=== PATIENT | female | born 1970 | race Two or more races ===

== ENCOUNTER 2024-12-16 13:32 | Inpatient (IN) | payer BC, OTHER ==
[~2024-12-16] VITALS: Ht 162.6 cm; Wt 88.1 kg
[2024-12-16 13:40] VITALS: PULSE 113; RESP 22; O2SAT 97
--- NOTE | 2024-12-16 13:47 | ED.PDOC ---
SOB-HPI HPI Comments This is the 54 year old female JAMIE presenting to the ED with chief complaint of aspiration. EMS reports that the patient was being seen in a surgical center for a L4/5 spinal injection, sedated with Propofol and Versed prior to the procedure. EMS relays that the patient had been noted to have aspirated during her sedation, dropping her O2 saturation to 88% on RA. EMS states that the patient was kept for 2 hours for observation, however, her saturation did not improve so 911 was called. EMS notes patient is now 92% on a non-rebreather at this time. Patient reports that she is currently experiencing SOB and a non- productive cough. Patient denies any N/V, chest pain, fever, or chills. Time Seen by MD: 13:34 Reviewed notes: Nurses Notes, Clinical Care Manager Notes, Medications, Allergies Information Source: Patient, Emergency Med Personnel Mode of Arrival: EMS Severity: Severe Timing: Hours Duration: Since onset Context: At Rest PE Risk Factors: None History of: None Prehospital treatment: None Modifying Factors: Nothing Past Medical History PAST MEDICAL HISTORY: Denies Surgical History: Denies all surgeries CONCRETE PANEL INSTALLER History: No Pertinent CONCRETE PANEL INSTALLER History Family History Family History: Reviewed,noncontributory to illness Social History Smoker: Non-Smoker Alcohol: Denies ETOH Use Drugs: Denies Drug Use Lives In: Home Constitutional: denies: chills, diaphoresis, fatigue, fever, malaise, sweats, weakness, others EENTM: denies: blurred vision, double vision, ear bleeding, ear discharge, ear drainage, ear pain, ear ringing, eye pain, eye redness, hearing loss, mouth pain, mouth swelling, nasal discharge, nose bleeding, nose congestion, nose pain, photophobia, tearing, throat pain, throat swelling, voice changes, others Respiratory: reports: cough, shortness of breath; denies: hemoptysis, o rthopnea, SOB at rest, SOB with excertion, stridor, wheezing, others Cardiovascular: denies: chest pain, dizzy spells, diaphoresis, Dyspnea on exertion, edema, irregular heart beat, left arm pain, lightheadedness, palpitations, PND, syncope, others Gastrointestinal: denies: abdomen distended, abdominal pain, blood streaked bowels, constipated, diarrhea, dysphagia, difficulty swallowing, hematemesis, melena, nausea, poor appetite, poor fluid intake, rectal bleeding, rectal pain, vomiting, others Genitourinary: denies: abnormal vagina bleeding, burning, dyspareunia, dysuria, flank pain, frequency, hematuria, incontinence, pain, , vagina discharge, urgency, others Neurological: denies: dizziness, fainting, headache, left sided numbness, left sided weakness, numbness, paresthesia, pre-existing deficit, right sided numbness, right sided weakness, seizure, speech problems, tingling, tremors, weakness, others Musculoskeletal: denies: back pain, gout, joint pain, joint swelling, muscle pain, muscle stiffness, neck pain, others Integumetry: denies: bruises, change in color, change in hair/nails, dryness, laceration, lesions, lumps, rash, wounds, others Allergic/Immunocompromised: denies: Difficulty Healing, Frequent Infections, Hives, Itching, others Hematologic/Lymphatic: denies: anemia, blood clots, easy bleeding, easy bruising, swollen glands, others Endocrine: denies: excessive hunger, excessive sweating, excessive thirst, excessive urination, flushing, intolerance to cold, intolerance to heat, unexplained weight gain, unexplained weight loss, others Psychiatric: denies: anxiety, bipolar disorder, depression, hopeless, panic disorder, schizophrenia, sleepless, suicidal, others All Other Systems: Reviewed and Negative Physical Exam General Appearance: No Apparent Distress, Normal HEENT: Normal ENT Inspection, PERRL/EOMI Neck: Full Range of Motion, Non-Tender, Normal, Normal Inspection Respiratory: Chest Non-Tender, Crackles (Crackles in lungs bilaterally, non- productive cough), Lungs Clear, No Accessory Muscle Use, No Respiratory Distress Cardiovascular: No Edema, No JVD, No Murmur, No Gallop, Normal Peripheral Pulses, Regular Rate/Rhythm Breast Exam: Deferred Gastrointestinal: No Organomegaly, Non Tender, No Pulsatile Mass, Normal Bowel Sounds, Soft Genitalia: Deferred Pelvic: Deferred Rectal: Deferred Extremities: No calf tenderness, Normal capillary refill, Normal inspection, Normal range of motion, Non-tender, No pedal edema Musculoskeletal : Apperance: Normal Neurologic: Alert, cutter gas II-XII nml as Tested, No Motor Deficits, Normal Affect, Normal Mood, No Sensory Deficits Cerebellar Function: Normal Reflexes: Normal Skin: Dry, Normal Color, Warm Lymphatic: No Adenopathy Was a procedure done? Was a procedure done?: No Differential Dx Differential Diagnosis: CHF, COPD, Pneumonia, Sinusitis, URI X-Ray, Labs, Meds, VS Vital Signs Date Time Temp Pulse Resp B/P (MAP) Pulse Ox O2 Delivery O2 Flow Rate FiO2 12/16/24 13:58 97.9 100 18 150/102 (118) 98 97.9 12/16/24 13:40 97.9 112 22 148/87 (107) 97 97.9 12/16/24 13:40 113 22 97 Simple Mask* 10 99 Lab Test 12/16/24 14:57 Range/Units White Blood Count 16.1 H 4.4-10.8 10^3/uL Red Blood Count 4.81 4.0-5.20 10^6/uL Hemoglobin 15.0 12.2-16.2 g/dL Hematocrit 43.8 36.0-46.0 % Mean Corpuscular Volume 91.0 80.0-100.0 fL Mean Corpuscular Hemoglobin 31.2 28.0-32.0 pg Mean Corpuscular Hemoglobin Concent 34.3 32.0-36.0 g/dL Red Cell Distribution Width 13.7 11.8-14.3 % Platelet Count 306 140-450 10^3/uL Mean Platelet Volume 8.1 6.9-10.8 fL Neutrophils (%) (Auto) 37.0-80.0 % Lymphocytes (%) (Auto) 10.0-50.0 % Monocytes (%) (Auto) 0.0-12.0 % Basophils (%) (Auto) 0.0-2.0 % Neutrophils # (Auto) 1.6-8.6 10 ^3/uL Lymphocytes # (Auto) 0.4-5.4 10 ^3/uL Monocytes # (Auto) 0-1.3 10 ^3/uL Differential Total Cells Counted 100.0 100 Neutrophils % (Manual) 93 H 37.0-80.0 Band Neutrophils % (Manual) 0 Lymphocytes % (Manual) 4 L 10.0-50.0 Monocytes % (Manual) 3 0-12 Eosinophils % (Manual) 0 0-7 Basophils % (Manual) 0 0.0-2.0 Metamyelocytes % (manual) 0 Myelocytes % (Manual) 0 Promyelocytes % (Manual) 0 Blast Cells % (Manual) 0 Reactive Lymphocytes 0 Platelet Estimate Adequate Sodium Level 145 136-145 mmol/L Potassium Level 3.7 3.5-5.1 mmol/L Chloride Level 108 H 98-107 mmol/L Carbon Dioxide Level 25 20-31 mmol/L Anion Gap 12 5-15 Blood Urea Nitrogen 18 9-23 mg/dL Creatinine 1.13 H 0.550-1.02 mg/dL Glomerular Filtration Rate Calc 57 >90 mL/min BUN/Creatinine Ratio 15.9 10.0-20.0 Serum Glucose 106 74-106 mg/dL Lactic Acid Level 2.0 0.4-2.0 mmol/L Calcium Level 10.4 8.7-10.4 mg/dL Troponin I High Sensitivity < 3 L </=34 ng/L Current Medications Medications (Trade) Dose Ordered Sig/Dg Route Start Time Stop Time Status Last Admin Azithromycin (Zithromax Tablet) 500 mg ONCE ONCE PO 12/16/24 16:30 12/16/24 16:31 DC 12/16/24 16:39 Al Hydrox/Mg Hydrox/Simethicone (Maalox Plus) 15 ml ONCE ONCE PO 12/16/24 16:30 12/16/24 16:31 DC 12/16/24 16:39 Piperacillin Sod/ Tazobactam Sod 100 ml @ 100 mls/hr ONCE ONCE IV 12/16/24 16:30 12/16/24 17:29 12/16/24 16:39 Time of 1ST Reevaluation: 14:34 Reevaluation 1ST: Unchanged Patient Education/Counseling: Diagnosis, Treatment Family Education/Counseling: No Family Present Additional Information Previous visits reviewed: The following tests were ordered, and results were reviewed by me: Additional Information was gathered from interviewing the following independent historians: None I reviewed and agreed with the following test results read by other providers: None I discussed treatment and results with medical personnel and: patient Comprehensive systems review obtained and negative except for what is stated in the HPI. Sepsis Sepsis Reasesment Focused Exam Orders: Laboratory Tests 12/16/24 14:57: Lactic Acid Level 2.0 Departure 1 Departure Time of Disposition: 17:06 (Patient likely with a aspiration pneumonia and hypoxia on room air. Will cover patient with antibiotics and admit for further workup) Impression: Primary Impression: Hypoxia Additional Impression: Shortness of breath Disposition: ADMITTED INPATIENT Admit to: Med Surg Condition: Serious Critical Care Note Critical Care Time?: Yes Critical care comment: Acute Hypoxia Authorized and Performed by: Andry Bowman MD Total critical care time: Approximately 34 minutes Due to a high probability of clinically significant, life threatening deterioration, the patient required my highest level of preparedness to intervene emergently and I personally spent this critical care time directly and personally managing the patient. This critical care time included obtaining a history; examining the patient; pulse oximetry; ordering and review of studies; arranging urgent treatment with development of a management plan; evaluation of patient's response to treatment; frequent reassessment; and, discussions with other providers. This critical care time was performed to assess and manage the high probability of imminent, life-threatening deterioration that could result in multi-organ failure. It was exclusive of separately billable procedures and treating other p atients and teaching time. Please see my other sections and the rest of the note for further information on patient assessment and treatment. Stability Stability form required: No Heart Score Heart Score: Heart Score Response (Comments) Value History N/A 0 EKG N/A 0 Age N/A 0 Risk Factors N/A 0 Troponin N/A 0 Total 0 I personally scribed for ANDRY BOWMAN MD ([email or web address]) on 12/16/24 at 13:47. Electronically submitted by Corey Liao ([email or web address]). ANDRY BOWMAN MD Dec 16, 2024 13:47
--- NOTE | 2024-12-16 14:11 | DVH ---
CHEST RADIOGRAPH Indication: cough, hypoxia Technique: Single frontal view of the chest was obtained Comparison: None FINDINGS: Lines and Tubes: None Lungs: No focal consolidation. Pleura: No effusion. No pneumothorax. Cardiomediastinal contours: Unremarkable Bones: No acute osseous abnormality. IMPRESSION: 1. No acute cardiopulmonary disease.
[2024-12-16 15:31] LABS: Hematocrit 43.8 % (36.0-46.0); Mean Corpuscular Hemoglobin 31.2 pg (28.0-32.0); Mean Corpuscular Hgb Conc. 34.3 g/dL (32.0-36.0); Platelet Count (auto) 306 10^3/uL (140-450); Red Blood Cells 4.81 10^6/uL (4.0-5.20); Red Cell Distribution Width 13.7 % (11.8-14.3); White Blood Cell 16.1 10^3/uL (4.4-10.8)
[2024-12-16 15:41] LABS: Potassium 3.7 mmol/L (3.5-5.1)
[2024-12-16 15:42] LABS: Anion Gap 12 (5-15); Calcium 10.4 mg/dL (8.7-10.4); Carbon Dioxide 25 mmol/L (20-31)
[2024-12-16 15:43] LABS: Chloride 108 mmol/L (98-107); Sodium 145 mmol/L (136-145)
[2024-12-16 15:47] LABS: Blood Urea Nitrogen 18 mg/dL (9-23); Glucose 106 mg/dL (74-106)
[2024-12-16 15:53] LABS: BUN/Creatinine Ratio 15.9 (10.0-20.0); Band Neutrophils % (manual) 0; Basophils % (manual) 0 (0.0-2.0); Blast Cells 0; Eosinophils % (manual) 0 (0-7); Metamyelocytes % 0; Myelocytes % 0; Promyelocytes % 0; Reactive Lymphocytes 0
[2024-12-16 16:34] LABS: Lymphocytes % (manual) 4 (10.0-50.0); Monocytes % (manual) 3 (0-12); Platelet Estimate Adequate
[2024-12-16] MEDS: PIPERACILLIN-TAZO 4.5GM 100 ML IV ONE (16:39)
[2024-12-16] MEDS: AZITHROMYCIN 250 MG TAB PO ONE (16:39)
[2024-12-16] MEDS: MAALOX PLUS or MAALOX 30 ML PO ONE (16:39)
[2024-12-16] MEDS: GABAPENTIN 400 MG CAP PO ONE (18:04)
[2024-12-16] MEDS: METHOCARBAMOL 500 MG TAB PO ONE (18:04)
[2024-12-16 19:29] VITALS: PULSE 110; RESP 17; O2SAT 98
[2024-12-16] MEDS ORDERED: ACETAMINOPHEN 325 MG TAB PO PRN (19:45)
[2024-12-16] MEDS ORDERED: ONDANSETRON HCL 4 MG/2 ML VIAL IV PRN (19:45)
[2024-12-16] MEDS ORDERED: IPRATROPIUM BROM 0.5 MG/2.5ML INH SOL NEB PRN (20:15)
[2024-12-16] MEDS ORDERED: ALBUTEROL SULF 2.5 MG/0.5ML(0.5%) NEB SOLN NEB PRN (20:15)
[2024-12-16 20:26] VITALS: BP 138/81; PULSE 110; RESP 17; O2SAT 98
[2024-12-16 21:38] VITALS: O2SAT 98
[2024-12-16] MEDS: methylPREDNISolone SOD SUCC 125 MG/2 ML VL IV ONE (21:44)
[2024-12-16] MEDS: PIPERACILLIN-TAZOB 3.375GM 100 ML IV SCH (21:44)
[2024-12-16] MEDS: SODIUM CHLOR 0.9% PF (SALINE LOCK) 10ML VIAL/SYR IV SCH (21:45)
--- NOTE | 2024-12-16 22:03 | DVHHP2 ---
History of Present Illness Reason for Visit: Asthma with acute exacerbation History of Present Illness The patient is a 54-year-old female with past medical history of thyroid disease, depression, GERD, asthma, and neuropathic pain who presented to [facility] ED with complaint of shortness of breaths and nonproductive cough. Patient reports symptoms progressively get worse with aspiration due to a L4/5 spinal injection, sedated with Propofol and Versed prior to the procedure at surgical center. Patient was seen and evaluated in the ED, laboratory data shows WBC 16.1, platelets 306, sodium 145, potassium 3.7, BUN 18, creatinine 1.13, GFR 57, glucose 106, calcium 10.4, troponin < 3, blood pressure 138/81, heart rate 110, temperature 98.4 F, O2 saturation 98% on oxygen. Chest x-ray show no acute cardiopulmonary disease. Patient was started on Solu-Medrol 125 IV mg x 1, please see medication orders section in the computer. On my assessment, patient denied chest pain, no headache, no dizziness, currently on oxygen, no diaphoresis, no abdominal pain, no nausea, no vomiting, no fever, no chills. Patient was admitted for further evaluation and medical management. Past Medical History Depression, Thyroid disease, GERD, Asthma, Neuropathic pain Past Surgical History Denies all surgeries Family History Reviewed, noncontributory to the management of this case. Past Social History The patient lives at home, denies smoking, alcohol or illicit drugs abuse. Review of Systems Constitutional: No: Fever, Chills, Sweats, Weakness, Malaise, Other Eyes: No: Pain, Vision change, Conjunctivae inflammation, Eyelid inflammation, Other, Redness ENT: No: Ear pain, Ear discharge, Nose pain, Nose discharge, Nose congestion, Mouth pain, Mouth swelling, Throat pain, Throat swelling, Other Respiratory: Cough (Nonproductive), Shortness of breath, Wheezing, Other (SOB at rest); No: Dry, SOB with excertion, Hemoptysis, Pleuritic Pain, Sputum, Wheezing Cardiovascular: No: Chest Pain, Palpitations, Orthopnea, Paroxysmal Noc. Dyspnea, Edema, Lt Headedness, Other Gastrointestinal: No: Nausea, Vomiting, Abdominal Pain, Diarrhea, Constipation, Melena, Hematochezia, Other Genitourinary: No Dysuria, No Frequency, No Incontinence, No Hematuria, No Retention, No Other Musculoskeletal: No: other, neck pain, shoulder pain, arm pain, back pain, hand pain, leg pain, foot pain Skin: No: Rash, Lesions, Jaundice, Bruising, Other Neurological: No: Weakness, Numbness, Incoordination, Change in speech, Co nfusion, Seizures, Other Allergies: Coded Allergies: Hydrocodone (Verified Allergy, Intermediate, 12/16/24) Codeine (Verified Allergy, Mild, 12/16/24) Sulfa Antibiotics (Verified Allergy, Mild, 12/16/24) Medications Current Medications Medications Dose Ordered Sig/Dg Route Start Time Stop Time Status Last Admin Dose Admin Gabapentin 400 mg BID PO 12/17/24 10:00 Methocarbamol 750 mg BID PO 12/17/24 10:00 Piperacillin Sod/ Tazobactam Sod 100 ml @ 25 mls/hr Q8HR IV 12/16/24 22:00 12/16/24 21:44 25 MLS/HR Pantoprazole Sodium 40 mg DAILY IV 12/17/24 10:00 Levothyroxine Sodium 150 mcg QAM@0600 PO 12/17/24 06:00 Bupropion HCl 150 mg BID@07,19 PO 12/17/24 07:00 Sodium Chloride 10 ml Q8HR IV 12/16/24 22:00 12/16/24 21:45 10 ML Ondansetron HCl 4 mg Q4HP PRN IV 12/16/24 19:45 Docusate Sodium 100 mg BIDPRN PRN PO 12/16/24 19:45 Acetaminophen 650 mg Q6HP PRN PO 12/16/24 19:45 Albuterol 2.5 mg Q4HPRN PRN NEB 12/16/24 20:15 Ipratropium [place] 0.5 mg Q4HPRN PRN NEB 12/16/24 20:15 Exam Vital Signs Vital Signs Date Time Temp Pulse Resp B/P (MAP) Pulse Ox O2 Delivery O2 Flow Rate FiO2 12/16/24 21:38 98 Nasal Cannula* 4 36 12/16/24 20:26 110 17 138/81 12/16/24 19:28 98.4 98.4 General Appearance: Alert, Oriented X3, Cooperative, No acute distress HEENT: Atraumatic, PERRLA, EOMI, Mucous membr. moist/pink Respiratory: Normal air movement, Other (Wheezing) Cardiovascular: Regular rate, Normal S1, Normal S2, No murmurs Abdominal: Normal bowel sounds, Soft, No tenderness, No hepatospenomegaly, No masses Extremities: No clubbing, No cyanosis, No edema, Normal pulses, No tenderness/swelling Skin: No rashes, No breakdown, No significant lesion Neuro: Normal gait, Normal speech, Strength at 5/5 X4 ext, Normal tone, Sensation intact, Cranial nerves 3-12 NL, Reflexes 2+ Psych/Mental Status: Mental status NL, Mood NL Labs/Xrays Labs Test 12/16/24 14:57 Range/Units White Blood Count 16.1 H 4.4-10.8 10^3/uL Red Blood Count 4.81 4.0-5.20 10^6/uL Hemoglobin 15.0 12.2-16.2 g/dL Hematocrit 43.8 36.0-46.0 % Mean Corpuscular Volume 91.0 80.0-100.0 fL Mean Corpuscular Hemoglobin 31.2 28.0-32.0 pg Mean Corpuscular Hemoglobin Concent 34.3 32.0-36.0 g/dL Red Cell Distribution Width 13.7 11.8-14.3 % Platelet Count 306 140-450 10^3/uL Mean Platelet Volume 8.1 6.9-10.8 fL Neutrophils (%) (Auto) 37.0-80.0 % Lymphocytes (%) (Auto) 10.0-50.0 % Monocytes (%) (Auto) 0.0-12.0 % Basophils (%) (Auto) 0.0-2.0 % Neutrophils # (Auto) 1.6-8.6 10 ^3/uL Lymphocytes # (Auto) 0.4-5.4 10 ^3/uL Monocytes # (Auto) 0-1.3 10 ^3/uL Differential Total Cells Counted 100.0 100 Neutrophils % (Manual) 93 H 37.0-80.0 Band Neutrophils % (Manual) 0 Lymphocytes % (Manual) 4 L 10.0-50.0 Monocytes % (Manual) 3 0-12 Eosinophils % (Manual) 0 0-7 Basophils % (Manual) 0 0.0-2.0 Metamyelocytes % (manual) 0 Myelocytes % (Manual) 0 Promyelocytes % (Manual) 0 Blast Cells % (Manual) 0 Reactive Lymphocytes 0 Platelet Estimate Adequate Sodium Level 145 136-145 mmol/L Potassium Level 3.7 3.5-5.1 mmol/L Chloride Level 108 H 98-107 mmol/L Carbon Dioxide Level 25 20-31 mmol/L Anion Gap 12 5-15 Blood Urea Nitrogen 18 9-23 mg/dL Creatinine 1.13 H 0.550-1.02 mg/dL Glomerular Filtration Rate Calc 57 >90 mL/min BUN/Creatinine Ratio 15.9 10.0-20.0 Serum Glucose 106 74-106 mg/dL Lactic Acid Level 2.0 0.4-2.0 mmol/L Calcium Level 10.4 8.7-10.4 mg/dL Troponin I High Sensitivity < 3 L </=34 ng/L Thyroid Stimulating Hormone (TSH) 0.85 0.55-4.78 uIU/mL PATIENT: FARTUN CLARK ACCT: [id number] UNIT: [id number] : 1970 LOC: ER ROOM / BED: / AGE / SEX: 54 / F ADM STATUS: REG ER SERVICE 1341 ORDERING PHYSICIAN: ANDRY GARCIA MD PROCEDURE(s): CXRP - CHEST PORTABLE REASON: cough, hypoxia ORDER NUMBER(s): [id number], ACCESSION NUMBER(s): [id number] CHEST RADIOGRAPH Indication: cough, hypoxia Technique: Single frontal view of the chest was obtained Comparison: None FINDINGS: Lines and Tubes: None Lungs: No focal consolidation. Pleura: No effusion. No pneumothorax. Cardiomediastinal contours: Unremarkable Bones: No acute osseous abnormality. IMPRESSION: 1. No acute cardiopulmonary disease. Assessment/Plan Assessment/Plan Acute respiratory failure with hypoxia Asthma with acute exacerbation Leukocytosis, unspecified Plan 1. Admit to telemetry unit 2. Breathing treatment 3. Pain control management 4. IV antibiotic management 5. Management of fluids and electrolytes 6. Consultation for hospitalist 7. Diagnostic test chest x-ray 8. DVT prophylaxis-on SCDs 9. Repeat labs CBC, CMP in a.m. 10. Home medication reviewed and reconciled 11. Continue with current medical management 12. Treatment plan discussed with patient and RN. Patient verbalized understanding. Plan discussed with: Patient, Other (RN) My Orders Orders - ANN VACA DNP Procedure Category Date Status Time Piperacillin-Tazob PHA 6/13/25 In Process 3.375gm (Zosyn 3.375g 22:00 Pantoprazole PHA 12/17/24 In Process (Protonix) 10:00 Levothyroxine Tablet PHA 12/17/24 In Process (Synthroid Tablet) 06:00 Bupropion Tablet PHA 12/17/24 In Process (Wellbutrin Tablet) 07:00 Allergies GONZALO 12/16/24 In Process 19:35 Code Status CODE 12/16/24 Transmitted 19:35 Sodium Chloride Lock PHA 12/16/24 In Process (Saline Lock Ns) 22:00 Oxygen Per Hour RT 12/16/24 Transmitted 19:35 Ondansetron Hcl PHA 12/16/24 In Process (Zofran) 19:45 Docusate Sodium PHA 12/16/24 In Process Capsule (Colace 19:45 Complete Blood Count LAB 12/17/24 Verified 04:00 Comprehensive LAB 12/17/24 Verified Metabolic Panel 04:00 Cardiac DIET 12/17/24 Transmitted Diet-2gna,Lofat,Lochol Breakfast Condition: Serious GONZALO 12/16/24 In Process 19:35 Acetaminophen Tablet PHA 12/16/24 In Process (Tylenol Tablet) 19:45 Bedrest With Bathroom GONZALO 12/16/24 In Process Privileg 19:35 Sequential GONZALO 12/16/24 In Process Compression Device Albuterol Medneb PHA 12/16/24 In Process (Ventolin Medneb) 20:15 Ipratropium Medneb PHA 12/16/24 In Process (Atrovent Medneb) 20:15 Methylprednisolone PHA 12/17/24 In Process Sod Succ (Solu Medrol 08:00 Problem List: (1) Acute respiratory failure with hypoxia (2) Asthma with acute exacerbation (3) Leukocytosis, unspecified Date of Service: Dec 16, 2024 Billing Provider: ANN VACA DNP Common Visit Codes: [id number] INP/OBS CARE (HIGH) ANN VACA DNP Dec 16, 2024 22:03
[2024-12-16] MEDS ORDERED: NITROGLYCERIN 0.4 MG SL TAB SL PRN (22:15)
[2024-12-17 05:45] LABS: Basophils # (auto) 0 10 ^3/uL (0-0.2); Basophils % (auto) 0.2 % (0.0-2.0); Eosinophils # (auto) 0 10 ^3/uL (0-0.8); Hematocrit 39.9 % (36.0-46.0); Hemoglobin 13.9 g/dL (12.2-16.2); Lymphocytes # (auto) 0.9 10 ^3/uL (0.4-5.4); Lymphocytes % (auto) 7.2 % (10.0-50.0); Mean Corpuscular Hemoglobin 31.3 pg (28.0-32.0); Mean Corpuscular Hgb Conc. 34.7 g/dL (32.0-36.0); Mean Corpuscular Volume 90.2 fL (80.0-100.0); Monocytes # (auto) 0.1 10 ^3/uL (0-1.3); Neutrophils # (auto) 10.9 10 ^3/uL (1.6-8.6); Neutrophils % (auto) 91.6 % (37.0-80.0); Platelet Count (auto) 286 10^3/uL (140-450); Red Blood Cells 4.43 10^6/uL (4.0-5.20); Red Cell Distribution Width 13.4 % (11.8-14.3); White Blood Cell 11.9 10^3/uL (4.4-10.8)
[2024-12-17 06:08] LABS: Albumin 4.6 g/dL (3.2-4.8); Alkaline Phosphatase 84 U/L (46-116); Anion Gap 13 (5-15); BUN/Creatinine Ratio 17.4 (10.0-20.0); Bilirubin, Total 0.7 mg/dL (0.2-1.0); Blood Urea Nitrogen 19 mg/dL (9-23); Calcium 10.4 mg/dL (8.7-10.4); Carbon Dioxide 22 mmol/L (20-31); Potassium 4.1 mmol/L (3.5-5.1); Sodium 142 mmol/L (136-145); Total Protein 7.4 g/dL (5.7-8.2)
[2024-12-17] MEDS: buPROPion HCL 75 MG TAB PO SCH (06:14)
[2024-12-17] MEDS: LEVOTHYROXINE SODIUM 50 MCG TAB PO SCH (06:16)
[2024-12-17] MEDS: MORPHINE SULFATE INJ 2 MG/ml SYRG IV PRN (06:18)
[2024-12-17 06:30] LABS: Alanine Aminotransferase 147 U/L (7-40); Aspartate Aminotransferase 141 U/L (<34); Chloride 107 mmol/L (98-107); Glucose 128 mg/dL (74-106)
[2024-12-17 06:52] VITALS: O2SAT 93
[2024-12-17 07:30] VITALS: PULSE 96; RESP 16; O2SAT 92
[2024-12-17] MEDS: METHOCARBAMOL 500 MG TAB PO SCH (11:08)
[2024-12-17] MEDS: PANTOPRAZOLE 40 MG/10 ML VIAL INJ IV SCH (11:09)
[2024-12-17] MEDS: GABAPENTIN 400 MG CAP PO SCH (11:09)
[2024-12-17] MEDS: methylPREDNISolone SOD SUCC 40 MG/ML VL IV ONE (11:09)
[2024-12-17] MEDS: oxyCODONE HCL 5MG TAB PO SCH (16:09)
--- NOTE | 2024-12-17 16:34 | DVHPN2 ---
Subjective Patient denies any symptoms at this time. Reviewed: Care Plan, H&P, Labs, Medications, Previous Orders Changes from previous H/P or p: No Changes General: Per HPI Eyes: No Pain, No Vision change, No Conjunctivae inflammation, No Eyelid inflammation, No Other, No Redness ENT: No Ear pain, No Ear discharge, No Nose pain, No Nose discharge, No Nose congestion, No Mouth pain, No Mouth swelling, No Throat pain, No Throat swelling, No Other Cardiovascular: No Chest Pain, No Palpitations, No Orthopnea, No Paroxysmal Noc. Dyspnea, No Edema, No Lt Headedness, No Other Respiratory: Cough (Nonproductive); No Dry; Shortness of breath; No SOB with excertion; Wheezing; No Hemoptysis, No Pleuritic Pain, No Sputum; Other (SOB at rest) Gastrointestinal: No Nausea, No Vomiting, No Abdominal Pain, No Diarrhea, No Constipation, No Melena, No Hematochezia, No Other Genitourinary: No Dysuria, No Frequency, No Incontinence, No Hematuria, No Retention, No Other Musculoskeletal: No other, No neck pain, No shoulder pain, No arm pain, No back pain, No hand pain, No leg pain, No foot pain Skin: No Rash, No Lesions, No Jaundice, No Bruising, No Other Objective Vitals Vital Signs Date Time Temp Pulse Resp B/P (MAP) Pulse Ox O2 Delivery O2 Flow Rate FiO2 12/17/24 15:43 105 17 125/95 (105) 94 12/17/24 09:17 Nasal Cannula* 2 28 12/16/24 22:28 98.4 98.4 Intake/Output Intake and Output 12/17/24 07:00 Intake Total 175 ml Balance 175 ml Intake IV Total 175 ml General Appearance: Alert, Oriented X3, Cooperative, No acute distress HEENT: Atraumatic, PERRLA Lungs: Clear to auscultation, Normal air movement Cardiovascular: Normal S1, Normal S2 Abdomen: Normal bowel sounds, Soft, No tenderness Musculoskeletal: Normal sensory function, Normal motor function Skin: Dry Psych/Mental Status: Mental status NL, Mood NL Medications Current Medications Medications Dose Ordered Sig/Dg Route Start Time Stop Time Status Last Admin Dose Admin Gabapentin 400 mg BID PO 12/17/24 10:00 12/17/24 11:09 400 MG Methocarbamol 750 mg BID PO 12/17/24 10:00 12/17/24 11:08 750 MG Piperacillin Sod/ Tazobactam Sod 100 ml @ 25 mls/hr Q8HR IV 12/16/24 22:00 12/17/24 14:00 25 MLS/HR Pantoprazole Sodium 40 mg DAILY IV 12/17/24 10:00 12/17/24 11:09 40 MG Levothyroxine Sodium 150 mcg QAM@0600 PO 12/17/24 06:00 12/17/24 06:16 150 MCG Bupropion HCl 150 mg BID@07,19 PO 12/17/24 07:00 12/17/24 06:14 150 MG Sodium Chloride 10 ml Q8HR IV 12/16/24 22:00 12/17/24 13:33 10 ML Ondansetron HCl 4 mg Q4HP PRN IV 12/16/24 19:45 Docusate Sodium 100 mg BIDPRN PRN PO 12/16/24 19:45 Acetaminophen 650 mg Q6HP PRN PO 12/16/24 19:45 Albuterol 2.5 mg Q4HPRN PRN NEB 12/16/24 20:15 Ipratropium [place] 0.5 mg Q4HPRN PRN NEB 12/16/24 20:15 Nitroglycerin 0.4 mg Q5MINP PRN SL 12/16/24 22:15 Oxycodone HCl 5 mg Q12HR PO 12/17/24 15:45 12/17/24 16:09 5 MG Laboratory Results Laboratory Tests 12/17/24 05:28 Chemistry Test 12/17/24 05:28 Albumin 4.6 g/dL (3.2-4.8) Calcium Level 10.4 mg/dL (8.7-10.4) Total Protein 7.4 g/dL (5.7-8.2) LFT Test 12/17/24 05:28 Alanine Aminotransferase (ALT) 147 U/L (7-40) H Alkaline Phosphatase 84 U/L (46-116) Aspartate Amino Transferase (AST) 141 U/L (<34) H Total Bilirubin 0.7 mg/dL (0.2-1.0) Microbiology Microbiology Date/Time Source Procedure Growth Status 12/16/24 14:57 Blood Blood Culture - Preliminary NO GROWTH AFTER 24 HOURS OF INCUBATION. Resulted Labs and/or images reviewed: Labs reviewed by me Assessment/Plan Assessment/Plan Impression: -acute hypoxic respiratory failure -aspiration pneumonitis -asthma exacerbation -obesity -chronic pain syndrome -leukocytosis, probable sirs Plan: -start pain management with home medications -O2 supplementation to keep saturation greater than 90% -bronchodilators -repeat chest x-ray in a.m. -reassess for discharge in a.m. Total time spent with patient discussing and formulating plan of care: 35 minutes. This medical document was created using an electronic medical record system with [employer] dictation system. Although this document has been carefully reviewed, there may still be some phonetic and typographical errors. These areas are purely typographical due to imperfections of the software programs, and do not reflect any compromise in the patient's medical care. Plan discussed with: Patient, Other (RN) My Orders Orders - JENNI OLIVER NP Procedure Category Date Status Time Oxycodone Immediate PHA 12/17/24 In Process Rel Tablet 15:45 Chest Portable XY 12/18/24 Logged 04:00 Date of Service: Dec 17, 2024 Billing Provider: JENNI OLIVER NP Common Visit Codes: [id number] INP/OBS CARE(HIGH) JENNI OLIVER NP Dec 17, 2024 16:34
[2024-12-17 17:35] VITALS: BP 118/90; PULSE 100; RESP 17; TEMP 97.1; O2SAT 93
[2024-12-17 17:40] VITALS: PULSE 97; RESP 18; O2SAT 94
[2024-12-17] MEDS ORDERED: PANT40TA2 PO (18:32)
[2024-12-17] MEDS ORDERED: METH100035 IJ (18:32)
[2024-12-17] MEDS ORDERED: ALBU108A5 IN (18:32)
[2024-12-17] MEDS ORDERED: BUPR150T18 PO (18:32)
[2024-12-17] MEDS ORDERED: PROG100C23 PO (18:32)
[2024-12-17] MEDS ORDERED: ALBU1.258 IN (18:32)
[2024-12-17] MEDS ORDERED: LEVO150T10 PO (18:32)
[2024-12-17] MEDS ORDERED: GABA-339 PO (18:32)
[2024-12-17] MEDS ORDERED: FLUT100I IN ×2 (18:32)
[2024-12-17] MEDS ORDERED: PERCOT PO (18:32)
[2024-12-17] MEDS ORDERED: TAMS-35 PO (18:32)
[2024-12-17] MEDS ORDERED: METH-1182 PO (18:32)
[2024-12-17] MEDS ORDERED: [UNRECOGNIZED DRUG - CODE] TD (18:32)
[2024-12-17 21:00] VITALS: BP 115/71; PULSE 103; RESP 19; TEMP 97.8; O2SAT 95
[2024-12-17] MEDS: MELATONIN 5 MG TAB PO SCH (22:06)
[2024-12-17] MEDS ORDERED: GABAPENTIN 400 MG CAP ONE (22:17)
[2024-12-18] VITALS (13 sets, daily range): BP systolic 113–137; BP diastolic 77–96; PULSE 74–105; RESP 16–20; TEMP 97.6–98.7; O2SAT 92–100
[2024-12-18] MEDS: DOCUSATE SOD 100 MG CAP PO PRN (09:57)
--- NOTE | 2024-12-18 11:47 | DVHPN2 ---
Subjective Patient denies any symptoms at this time. Reviewed: Care Plan, H&P, Labs, Medications, Previous Orders Changes from previous H/P or p: No Changes General: Per HPI Eyes: No Pain, No Vision change, No Conjunctivae inflammation, No Eyelid inflammation, No Other, No Redness ENT: No Ear pain, No Ear discharge, No Nose pain, No Nose discharge, No Nose congestion, No Mouth pain, No Mouth swelling, No Throat pain, No Throat swelling, No Other Cardiovascular: No Chest Pain, No Palpitations, No Orthopnea, No Paroxysmal Noc. Dyspnea, No Edema, No Lt Headedness, No Other Respiratory: Cough (Nonproductive); No Dry; Shortness of breath; No SOB with excertion; Wheezing; No Hemoptysis, No Pleuritic Pain, No Sputum; Other (SOB at rest) Gastrointestinal: No Nausea, No Vomiting, No Abdominal Pain, No Diarrhea, No Constipation, No Melena, No Hematochezia, No Other Genitourinary: No Dysuria, No Frequency, No Incontinence, No Hematuria, No Retention, No Other Musculoskeletal: No other, No neck pain, No shoulder pain, No arm pain, No back pain, No hand pain, No leg pain, No foot pain Skin: No Rash, No Lesions, No Jaundice, No Bruising, No Other Objective Vitals Vital Signs Date Time Temp Pulse Resp B/P (MAP) Pulse Ox O2 Delivery O2 Flow Rate FiO2 12/18/24 09:52 92 Room Air* 0 21 12/18/24 08:59 97.8 95 17 113/77 (89) 97.8 Intake/Output Intake and Output 12/18/24 07:00 Intake Total 425 ml Balance 425 ml Intake Oral 400 ml IV Total 25 ml # Voids 2 General Appearance: Alert, Oriented X3, Cooperative, No acute distress HEENT: Atraumatic, PERRLA Lungs: Clear to auscultation, Normal air movement Cardiovascular: Normal S1, Normal S2 Abdomen: Normal bowel sounds, Soft, No tenderness Musculoskeletal: Normal sensory function, Normal motor function Neuro: Cranial nerves 3-12 NL Skin: Dry Psych/Mental Status: Mental status NL, Mood NL Medications Current Medications Medications Dose Ordered Sig/Dg Route Start Time Stop Time Status Last Admin Dose Admin Gabapentin 400 mg BID PO 12/17/24 10:00 12/18/24 10:22 400 MG Methocarbamol 750 mg BID PO 12/17/24 10:00 12/18/24 10:22 750 MG Piperacillin Sod/ Tazobactam Sod 100 ml @ 25 mls/hr Q8HR IV 12/16/24 22:00 12/18/24 06:09 25 MLS/HR Pantoprazole Sodium 40 mg DAILY IV 12/17/24 10:00 12/18/24 09:49 40 MG Levothyroxine Sodium 150 mcg QAM@0600 PO 12/17/24 06:00 12/18/24 06:10 150 MCG Bupropion HCl 150 mg BID@07,19 PO 12/17/24 07:00 12/18/24 06:11 150 MG Sodium Chloride 10 ml Q8HR IV 12/16/24 22:00 12/18/24 06:11 10 ML Ondansetron HCl 4 mg Q4HP PRN IV 12/16/24 19:45 Docusate Sodium 100 mg BIDPRN PRN PO 12/16/24 19:45 12/18/24 09:57 100 MG Acetaminophen 650 mg Q6HP PRN PO 12/16/24 19:45 Ipratropium [place] 0.5 mg Q4HPRN PRN NEB 12/16/24 20:15 Nitroglycerin 0.4 mg Q5MINP PRN SL 12/16/24 22:15 Oxycodone HCl 5 mg Q12HR PO 12/17/24 15:45 12/17/24 21:50 5 MG Melatonin 5 mg HS PO 12/17/24 22:00 12/17/24 22:06 5 MG Laboratory Results Laboratory Tests 12/17/24 05:28 Microbiology Microbiology Date/Time Source Procedure Growth Status 12/16/24 14:57 Blood Blood Culture - Preliminary NO GROWTH AFTER 24 HOURS OF INCUBATION. Resulted Labs and/or images reviewed: Labs reviewed by me, Image(s) reviewed by me Assessment/Plan Assessment/Plan Impression: -acute hypoxic respiratory failure -aspiration pneumonitis -asthma exacerbation -obesity -chronic pain syndrome -leukocytosis, probable sirs Plan: Events: Patient has worsening wheezing, requirements of O2 today. Reports having coughing green phlegm. -start pain management with home medications -O2 supplementation to keep saturation greater than 90% -bronchodilators , q.6 hours. Add Mucomyst -repeat chest x-ray in a.m. -reassess for discharge in a.m. Total time spent with patient discussing and formulating plan of care: 35 minutes. This medical document was created using an electronic medical record system with [email or web address] dictation system. Although this document has been carefully reviewed, there may still be some phonetic and typographical errors. These areas are purely typographical due to imperfections of the software programs, and do not reflect any compromise in the patient's medical care. Plan discussed with: Patient, Other (RN) My Orders Orders - JENNI OLIVER NP Procedure Category Date Status Time Oxycodone Immediate PHA 12/17/24 In Process Rel Tablet 15:45 Chest Portable XY 12/18/24 Logged 04:00 Comprehensive LAB 12/19/24 Verified Metabolic Panel 04:00 Complete Blood Count LAB 12/19/24 Verified 04:00 Chest Xray 1 View XY 12/18/24 Logged 11:39 Levalbuterol Hcl PHA 12/18/24 Logged (Xopenex Medneb) 12:00 Ipratropium Medneb PHA 12/18/24 Logged (Atrovent Medneb) 12:00 Acetylcysteine PHA 12/18/24 Logged Inhalation 10% 12:00 Temazepam (Restoril) PHA 12/18/24 Logged 11:45 Date of Service: Dec 18, 2024 Billing Provider: JENNI OLIVER NP Common Visit Codes: [id number] INP/OBS CARE(HIGH) JENNI OLIVER NP Dec 18, 2024 11:47
[2024-12-18] MEDS ORDERED: ACETYLCYSTEINE 10 %(100MG/ML) SOL 4ML NEB SCH (12:00)
[2024-12-18] MEDS: IPRATROPIUM BROM 0.5 MG/2.5ML INH SOL NEB SCH (12:18)
[2024-12-18] MEDS: LEVALBUTEROL HCL 1.25 MG/3 ML NEB NEB SCH (12:18)
[2024-12-18] MEDS: ACETYLCYSTEINE 10 %(100MG/ML) SOL 4ML NEB SCH (12:18)
--- NOTE | 2024-12-18 13:57 | DVH ---
CHEST RADIOGRAPH Indication: pna Technique: Single frontal view of the chest was obtained COMPARISON: XY CHEST PORTABLE on DOS: 12/16/24 FINDINGS: Lines and Tubes: None Lungs: Congestion Pleura: No effusion. No pneumothorax. Cardiomediastinal contours: Unremarkable Bones: Unremarkable IMPRESSION: Unchanged pulmonary vascular congestion or viral pneumonias
[2024-12-18] MEDS: TEMAZEPAM 15 MG CAP PO PRN (21:37)
[2024-12-18] MEDS: METHOCARBAMOL 500 MG TAB PO SCH (21:37)
[2024-12-18] MEDS: GABAPENTIN 400 MG CAP PO SCH (21:38)
[2024-12-19] VITALS (15 sets, daily range): BP systolic 114–127; BP diastolic 71–95; PULSE 86–112; RESP 16–22; TEMP 97.7–98.6; O2SAT 90–100
[2024-12-19 08:00] LABS: Basophils # (auto) 0 10 ^3/uL (0-0.2); Basophils % (auto) 0.3 % (0.0-2.0); Eosinophils # (auto) 0.3 10 ^3/uL (0-0.8); Eosinophils % (auto) 3.4 % (0.0-7.0); Hematocrit 36.1 % (36.0-46.0); Hemoglobin 12.4 g/dL (12.2-16.2); Lymphocytes # (auto) 3.3 10 ^3/uL (0.4-5.4); Lymphocytes % (auto) 40.7 % (10.0-50.0); Mean Corpuscular Hemoglobin 31.2 pg (28.0-32.0); Mean Corpuscular Hgb Conc. 34.3 g/dL (32.0-36.0); Mean Corpuscular Volume 90.8 fL (80.0-100.0); Monocytes # (auto) 0.6 10 ^3/uL (0-1.3); Monocytes % (auto) 7.2 % (0.0-12.0); Neutrophils # (auto) 3.9 10 ^3/uL (1.6-8.6); Neutrophils % (auto) 48.4 % (37.0-80.0); Nucleated Red Blood Cells % 0.2 %; Platelet Count (auto) 257 10^3/uL (140-450); Red Blood Cells 3.97 10^6/uL (4.0-5.20); Red Cell Distribution Width 13.8 % (11.8-14.3)
[2024-12-19 08:14] LABS: Alkaline Phosphatase 63 U/L (46-116); Anion Gap 12 (5-15); Aspartate Aminotransferase 30 U/L (<34); BUN/Creatinine Ratio 19.5 (10.0-20.0); Blood Urea Nitrogen 22 mg/dL (9-23); Calcium 9.6 mg/dL (8.7-10.4); Carbon Dioxide 25 mmol/L (20-31); Glucose 79 mg/dL (74-106); Sodium 145 mmol/L (136-145); Total Protein 6.4 g/dL (5.7-8.2)
[2024-12-19 08:15] LABS: Bilirubin, Total 0.5 mg/dL (0.2-1.0)
[2024-12-19 08:16] LABS: Alanine Aminotransferase 92 U/L (7-40); Chloride 108 mmol/L (98-107); Potassium 3.5 mmol/L (3.5-5.1)
--- NOTE | 2024-12-19 11:34 | DVHPN2 ---
Subjective Patient denies any symptoms at this time. Reviewed: Care Plan, H&P, Labs, Medications, Previous Orders Changes from previous H/P or p: No Changes General: Per HPI Eyes: No Pain, No Vision change, No Conjunctivae inflammation, No Eyelid inflammation, No Other, No Redness ENT: No Ear pain, No Ear discharge, No Nose pain, No Nose discharge, No Nose congestion, No Mouth pain, No Mouth swelling, No Throat pain, No Throat swelling, No Other Cardiovascular: No Chest Pain, No Palpitations, No Orthopnea, No Paroxysmal Noc. Dyspnea, No Edema, No Lt Headedness, No Other Respiratory: Cough (Nonproductive); No Dry; Shortness of breath; No SOB with excertion; Wheezing; No Hemoptysis, No Pleuritic Pain, No Sputum; Other (SOB at rest) Gastrointestinal: No Nausea, No Vomiting, No Abdominal Pain, No Diarrhea, No Constipation, No Melena, No Hematochezia, No Other Genitourinary: No Dysuria, No Frequency, No Incontinence, No Hematuria, No Retention, No Other Musculoskeletal: No other, No neck pain, No shoulder pain, No arm pain, No back pain, No hand pain, No leg pain, No foot pain Skin: No Rash, No Lesions, No Jaundice, No Bruising, No Other Objective Vitals Vital Signs Date Time Temp Pulse Resp B/P (MAP) Pulse Ox O2 Delivery O2 Flow Rate FiO2 12/19/24 11:27 96 Room Air 0.0 12/19/24 11:27 106 16 12/19/24 11:27 21 12/19/24 09:00 98.1 118/79 (92) 98.1 Intake/Output Intake and Output 12/19/24 07:00 Intake Total 2250 ml Balance 2250 ml Intake Oral 2150 ml IV Total 100 ml # Voids 6 # Bowel Movements 1 General Appearance: Alert, Oriented X3, Cooperative, No acute distress HEENT: Atraumatic, PERRLA Lungs: Clear to auscultation, Normal air movement Cardiovascular: Normal S1, Normal S2 Abdomen: Normal bowel sounds, Soft, No tenderness Musculoskeletal: Normal sensory function, Normal motor function Neuro: Normal gait, Normal speech, Cranial nerves 3-12 NL Skin: Dry Psych/Mental Status: Mental status NL, Mood NL Medications Current Medications Medications Dose Ordered Sig/Dg Route Start Time Stop Time Status Last Admin Dose Admin Piperacillin Sod/ Tazobactam Sod 100 ml @ 25 mls/hr Q8HR IV 12/16/24 22:00 12/19/24 06:06 25 MLS/HR Pantoprazole Sodium 40 mg DAILY IV 12/17/24 10:00 12/19/24 09:36 40 MG Levothyroxine Sodium 150 mcg QAM@0600 PO 12/17/24 06:00 12/19/24 06:12 150 MCG Bupropion HCl 150 mg BID@07,19 PO 12/17/24 07:00 12/19/24 06:46 150 MG Sodium Chloride 10 ml Q8HR IV 12/16/24 22:00 12/19/24 06:06 10 ML Ondansetron HCl 4 mg Q4HP PRN IV 12/16/24 19:45 Docusate Sodium 100 mg BIDPRN PRN PO 12/16/24 19:45 12/18/24 09:57 100 MG Acetaminophen 650 mg Q6HP PRN PO 12/16/24 19:45 Nitroglycerin 0.4 mg Q5MINP PRN SL 12/16/24 22:15 Oxycodone HCl 5 mg Q12HR PO 12/17/24 15:45 12/17/24 21:50 5 MG Melatonin 5 mg HS PO 12/17/24 22:00 12/17/24 22:06 5 MG Levalbuterol HCl 1.25 mg Q6HWA NEB 12/18/24 12:00 12/19/24 11:27 1.25 MG Ipratropium [place] 0.5 mg Q6HWA NEB 12/18/24 12:00 12/19/24 05:58 0.5 MG Temazepam 15 mg HSPRN PRN PO 12/18/24 11:45 12/18/24 21:37 15 MG Acetylcysteine 100 mg Q6HWA NEB 12/18/24 12:00 12/19/24 12:01 12/19/24 05:58 100 MG Gabapentin 400 mg BID PO 12/18/24 22:00 12/19/24 09:35 400 MG Methocarbamol 750 mg BID PO 12/18/24 22:00 12/19/24 09:35 750 MG Laboratory Results Laboratory Tests 12/19/24 07:08 Chemistry Test 12/19/24 07:08 Albumin 4.0 g/dL (3.2-4.8) Calcium Level 9.6 mg/dL (8.7-10.4) Total Protein 6.4 g/dL (5.7-8.2) LFT Test 12/19/24 07:08 Alanine Aminotransferase (ALT) 92 U/L (7-40) H Alkaline Phosphatase 63 U/L (46-116) Aspartate Amino Transferase (AST) 30 U/L (<34) Total Bilirubin 0.5 mg/dL (0.2-1.0) Microbiology Microbiology Date/Time Source Procedure Growth Status 12/16/24 14:57 Blood Blood Culture - Preliminary NO GROWTH AFTER 48 HOURS OF INCUBATION. Resulted Labs and/or images reviewed: Labs reviewed by me, Image(s) reviewed by me Assessment/Plan Assessment/Plan Impression: -acute hypoxic respiratory failure -aspiration pneumonitis -asthma exacerbation -obesity -chronic pain syndrome -leukocytosis, probable sirs Plan: Events: Wheezing improved. Worsening rhonchi, productive cough. O2 saturation 91% on room air. -start pain management with home medications -O2 supplementation to keep saturation greater than 90% -bronchodilators , q.6 hours. Add Mucomyst -repeat chest x-ray in a.m. -reassess for discharge in a.m. Total time spent with patient discussing and formulating plan of care: 35 minutes. This medical document was created using an electronic medical record system with [employer] dictation system. Although this document has been carefully reviewed, there may still be some phonetic and typographical errors. These areas are purely typographical due to imperfections of the software programs, and do not reflect any compromise in the patient's medical care. Plan discussed with: Patient, Other (RN) My Orders Orders - JENNI OLIVRE DOORKEEPER Procedure Category Date Status Time Levalbuterol Hcl PHA 12/18/24 In Process (Xopenex Medneb) 12:00 Ipratropium Medneb PHA 12/18/24 In Process (Atrovent Medneb) 12:00 Temazepam (Restoril) PHA 12/18/24 In Process 11:45 Acetylcysteine PHA 12/18/24 In Process Inhalation 10% 12:00 Basic Metabolic Panel LAB 12/20/24 Verified 04:00 Complete Blood Count LAB 12/20/24 Verified 04:00 Date of Service: Dec 19, 2024 Billing Provider: JENNI OLIVER NP Common Visit Codes: [id number] INP/OBS CARE(HIGH) JENNI OLIVER NP Dec 19, 2024 11:34
[2024-12-19] MEDS: methylPREDNISolone SOD SUCC 40 MG/ML VL IV SCH (13:07)
--- NOTE | 2024-12-19 14:15 | DVH ---
CHEST RADIOGRAPH Indication: pna Technique: Single frontal view of the chest was obtained Comparison: XY CHEST PORTABLE on DOS: 12/18/24, XY CHEST PORTABLE on DOS: 12/16/24 FINDINGS: Lines and Tubes: None Lungs: No focal consolidation. Pleura: No effusion. No pneumothorax. Cardiomediastinal contours: Unremarkable Bones: No acute osseous abnormality. IMPRESSION: No acute cardiopulmonary disease.
[2024-12-20] VITALS (8 sets, daily range): BP systolic 119–135; BP diastolic 76–85; PULSE 87–103; RESP 15–19; TEMP 97.5–98.1; O2SAT 92–100
[2024-12-20 09:01] LABS: Basophils # (auto) 0 10 ^3/uL (0-0.2); Basophils % (auto) 0.3 % (0.0-2.0); Eosinophils # (auto) 0 10 ^3/uL (0-0.8); Eosinophils % (auto) 0.5 % (0.0-7.0); Hematocrit 38.5 % (36.0-46.0); Hemoglobin 13.4 g/dL (12.2-16.2); Lymphocytes # (auto) 1.9 10 ^3/uL (0.4-5.4); Lymphocytes % (auto) 23.2 % (10.0-50.0); Mean Corpuscular Hemoglobin 31.6 pg (28.0-32.0); Mean Corpuscular Hgb Conc. 34.8 g/dL (32.0-36.0); Mean Corpuscular Volume 90.8 fL (80.0-100.0); Monocytes # (auto) 0.6 10 ^3/uL (0-1.3); Neutrophils # (auto) 5.4 10 ^3/uL (1.6-8.6); Nucleated Red Blood Cells % 0.1 %; Platelet Count (auto) 271 10^3/uL (140-450); Red Blood Cells 4.24 10^6/uL (4.0-5.20); Red Cell Distribution Width 13.6 % (11.8-14.3)
[2024-12-20 09:10] LABS: Calcium 10.1 mg/dL (8.7-10.4); Chloride 105 mmol/L (98-107); Potassium 3.4 mmol/L (3.5-5.1); Sodium 143 mmol/L (136-145)
[2024-12-20 09:11] LABS: Anion Gap 9 (5-15); Carbon Dioxide 29 mmol/L (20-31)
[2024-12-20 09:16] LABS: Blood Urea Nitrogen 18 mg/dL (9-23); Glucose 88 mg/dL (74-106)
--- NOTE | 2024-12-20 12:19 | DVHDS2 ---
Discharge Summary Date of Admission Dec 16, 2024 at 22:02 Date of Discharge: Dec 20, 2024 Admitting Diagnosis Acute hypoxic respiratory failure Labs/Diagnostic Data: Laboratory Results Test 12/20/24 08:39 12/19/24 07:08 12/16/24 14:57 White Blood Count 8.0 10^3/uL (4.4-10.8) Red Blood Count 4.24 10^6/uL (4.0-5.20) Hemoglobin 13.4 g/dL (12.2-16.2) Hematocrit 38.5 % (36.0-46.0) Mean Corpuscular Volume 90.8 fL (80.0-100.0) Mean Corpuscular Hemoglobin 31.6 pg (28.0-32.0) Mean Corpuscular Hemoglobin Concent 34.8 g/dL (32.0-36.0) Red Cell Distribution Width 13.6 % (11.8-14.3) Platelet Count 271 10^3/uL (140-450) Mean Platelet Volume 7.8 fL (6.9-10.8) Neutrophils (%) (Auto) 68.0 % (37.0-80.0) Lymphocytes (%) (Auto) 23.2 % (10.0-50.0) Monocytes (%) (Auto) 8.0 % (0.0-12.0) Eosinophils (%) (Auto) 0.5 % (0.0-7.0) Basophils (%) (Auto) 0.3 % (0.0-2.0) Neutrophils # (Auto) 5.4 10 ^3/uL (1.6-8.6) Lymphocytes # (Auto) 1.9 10 ^3/uL (0.4-5.4) Monocytes # (Auto) 0.6 10 ^3/uL (0-1.3) Eosinophils # (Auto) 0 10 ^3/uL (0-0.8) Basophils # (Auto) 0 10 ^3/uL (0-0.2) Nucleated Red Blood Cells 0.1 % Sodium Level 143 mmol/L (136-145) Potassium Level 3.4 mmol/L (3.5-5.1) Chloride Level 105 mmol/L (98-107) Carbon Dioxide Level 29 mmol/L (20-31) Anion Gap 9 (5-15) Blood Urea Nitrogen 18 mg/dL (9-23) Creatinine 1.06 mg/dL (0.550-1.02) Glomerular Filtration Rate Calc 62 mL/min (>90) BUN/Creatinine Ratio 17.0 (10.0-20.0) Serum Glucose 88 mg/dL (74-106) Calcium Level 10.1 mg/dL (8.7-10.4) Total Bilirubin 0.5 mg/dL (0.2-1.0) Aspartate Amino Transferase (AST) 30 U/L (<34) Alanine Aminotransferase (ALT) 92 U/L (7-40) Alkaline Phosphatase 63 U/L (46-116) Total Protein 6.4 g/dL (5.7-8.2) Albumin 4.0 g/dL (3.2-4.8) Differential Total Cells Counted 100.0 (100) Neutrophils % (Manual) 93 (37.0-80.0) Band Neutrophils % (Manual) 0 Lymphocytes % (Manual) 4 (10.0-50.0) Monocytes % (Manual) 3 (0-12) Eosinophils % (Manual) 0 (0-7) Basophils % (Manual) 0 (0.0-2.0) Metamyelocytes % (manual) 0 Myelocytes % (Manual) 0 Promyelocytes % (Manual) 0 Blast Cells % (Manual) 0 Reactive Lymphocytes 0 Platelet Estimate Adequate Lactic Acid Level 2.0 mmol/L (0.4-2.0) Troponin I High Sensitivity < 3 ng/L (</=34) Thyroid Stimulating Hormone (TSH) 0.85 uIU/mL (0.55-4.78) Other Laboratory Tests 12/20/24 08:39 Brief Hx & Hospital Course: History of Present Illness The patient is a 54-year-old female with past medical history of thyroid disease, depression, GERD, asthma, and neuropathic pain who presented to [facility] ED with complaint of shortness of breaths and nonproductive cough. Patient reports symptoms progressively get worse with aspiration due to a L4/5 spinal injection, sedated with Propofol and Versed prior to the procedure at surgical center. Patient was seen and evaluated in the ED, laboratory data shows WBC 16.1, platelets 306, sodium 145, potassium 3.7, BUN 18, creatinine 1.13, GFR 57, glucose 106, calcium 10.4, troponin < 3, blood pressure 138/81, heart rate 110, temperature 98.4 F, O2 saturation 98% on oxygen. Chest x-ray show no acute cardiopulmonary disease. Patient was started on Solu-Medrol 125 IV mg x 1, please see medication orders section in the computer. On my assessment, patient denied chest pain, no headache, no dizziness, currently on oxygen, no diaphoresis, no abdominal pain, no nausea, no vomiting, no fever, no chills. Patient was admitted for further evaluation and medical management. Course of hospitalization: Patient was found to have persistent hypoxia, with O2 supplementation at 2-3 L/min. Patient was given antibiotic therapy with Zosyn. Patient was given bronchodilators, in addition to IV steroids. Today, the patient states that her respiratory status has improved. On room air , her oxygen saturation was 94%. Bibasilar expiratory wheezing was appreciated with auscultation today, with the patient stating that she a home nebulizer treatment that we will assist with her history of asthma. Patient will follow up with her PCP in 1-2 weeks, and will be continued on antibiotic therapy with Augmentin 875 mg p.o. b.i.d. x7 days. She will continue all previous home medications. Physical examination General: Alert and Oriented x3. No acute distress. Well-nourished. Eyes: EOMI. Anicteric. HENT: Moist mucous membranes. Lungs: Clear to auscultation bilaterally. No accessory muscle use. Cardiovascular: Regular rate and rhythm. No murmur. No JVD. Abdomen: Soft, non-tender and non-distended. No palpable masses. Extremities: No edema. Non-tender. Skin: No rashes or lesions. Warm. Neurologic: No focal neurological deficits. CN II-XII grossly intact, but not individually tested. Psychiatric: Cooperative. Appropriate mood and affect. Total time spent with patient discussing and formulating plan of care: 35 minutes. This medical document was created using an electronic medical record system with [employer] dictation system. Although this document has been carefully reviewed, there may still be some phonetic and typographical errors. These areas are purely typographical due to imperfections of the software programs, and do not reflect any compromise in the patient's medical care. Condition at Discharge: Fair Final Diagnosis/Problems List Acute hypoxic respiratory failure Secondary diagnosis -acute hypoxic respiratory failure -aspiration pneumonitis -asthma exacerbation -obesity -chronic pain syndrome -leukocytosis, probable sirs Discharge Disposition: Home Discharge Instruct/Medications Diet: Cardiac 2g Na,low cholest Activity: No Restrictions, As Tolerated Follow Up/Referral: Follow up with PCP in 1-2 weeks Medications: Augmentin 875 mg p.o. b.i.d. x7 days 36 Discharge Statement: "Patient was advised to return to the ER or call 911 if any headaches, dizziness, shortness of breath, chest pain, abdominal pain, bleeding, fevers, or worsening of medical condition. Patient was counseled about treatment plan, medications, possible side effects, patientverbalized understanding. All questions were answered to the best of my ability. This discharge took greater then 30 minutes in planning, reviewing documentation, counseling the patient, and discussing with other team members." ASSESSMENT ASSESSMENT Assessment Acute hypoxic respiratory failure Date of Service: Dec 20, 2024 Billing Provider: JENNI OLIVER NP Common Visit Codes: [id number] DISCH DAY >30min JENNI OLIVER NP Dec 20, 2024 12:19
[2024-12-20] MEDS: POTASSIUM CHL 20 Meq TABLET PO ONE (13:37)
[2024-12-20] MEDS ORDERED: AUG875T PO (13:52)
[2024-12-20] MEDS ORDERED: PRED20TA2 PO (13:52)
== END 2024-12-20 14:00 | disposition home or self-care (01) | DRG 177 ==
LOC: ER 13:32 → EDBD 13:32 → OVERFLOW 22:02 → TELE-EAST 12-17 17:38
PROVIDERS: ADMIT Nurse Practitioner Acute Care; ATTEND Nurse Practitioner Acute Care
DX: J69.0 Pneumonitis due to inhalation of food and vomit (principal); J96.01 Acute respiratory failure with hypoxia; J45.901 Unspecified asthma with (acute) exacerbation; R65.10 Systemic inflammatory response syndrome (SIRS) of non-infectious origin without acute organ dysfunction; E66.9 Obesity, unspecified; K21.9 Gastro-esophageal reflux disease without esophagitis; G89.4 Chronic pain syndrome; D72.829 Elevated white blood cell count, unspecified; Z88.1 Allergy status to other antibiotic agents; Z88.5 Allergy status to narcotic agent; Z68.33 Body mass index [BMI] 33.0-33.9, adult; Z79.899 Other long term (current) drug therapy
CPT/HCPCS: 36415; 71045; 80048; 80053; 83605; 84443; 84484; 85007; 85025; 85027; 87040; 94640; 96365; 99291; G0378; J2470; J2543